=== PATIENT | female | born 1955 | race Caucasian/White ===

== ENCOUNTER 2017-05-11 19:20 | Emergency (ER) | payer OTHER ==
[2012-01-07 10:05] VITALS: BMI 29.1
[2017-05-11 19:49] LABS: APPEARANCE CLEAR (CLEAR); BILIRUBIN NEGATIVE (NEGATIVE); COLOR YELLOW (YELLOW); GLUCOSE NEGATIVE (NEGATIVE); KETONE NEGATIVE (NEGATIVE); NITRITE NEGATIVE (NEGATIVE); PROTEIN NEGATIVE (NEGATIVE); SPECIFIC GRAVITY 1.015 (1.005-1.020); UROBILINOGEN NORMAL (NORMAL)
[2017-05-11 19:50] LABS: BACTERIA FEW /hpf (NONE SEEN)
[2017-05-11 20:06] LABS: BASOPHILS 0.3 % (0-2); EOSINOPHILS 1.8 % (0-7); HEMATOCRIT 40.3 % (36.0-48.0); HEMOGLOBIN 13.2 g/dL (12-16); IMMATURE GRANULOCYTES 0.3 % (0-5); LYMPHOCYTES 12.9 % (15-50); MCH 29.9 pg (26.0-34.0); MCHC 32.8 g/dL (31.0-37.0); MCV 91.4 fL (80.0-100.0); MEAN PLATELET VOLUME 11.4 fL (7.4-10.4); MONOCYTES 5.4 % (2-11); NEUTROPHILS 79.3 % (40-80); PLATELET COUNT 223 10x3/uL (130-400); RBC 4.41 10x6/uL (4.00-5.40); RDW 12.9 % (11.5-14.5); WBC 10.9 10x3/uL (4.8-10.8)
[2017-05-11 20:29] LABS: ALBUMIN 3.9 g/dL (3.4-5.0); ANION GAP 13.4 mmol/L (8-16); BILIRUBIN - TOTAL 0.27 mg/dL (0.2-1.3); CALCIUM 9.3 mg/dL (8.5-10.1); CREATININE - SERUM 1.2 mg/dL (0.6-1.3); POTASSIUM - SERUM 3.4 mmol/L (3.5-5.1); PROTEIN - SERUM 7.2 g/dL (6.4-8.2)
== END 2017-05-11 21:18 | disposition home or self-care (01) ==
LOC: D.ER 19:20
PROVIDERS: Family Medicine
DX: N20.1 Calculus of ureter (principal)

== ENCOUNTER 2018-02-08 07:14 | Emergency (ER) | payer OTHER ==
[~2018-02-08] VITALS: Ht 167.6 cm; Wt 75.0 kg
[2018-02-08 07:17] VITALS: Ht 167.6 cm; Wt 75.0 kg
[2018-02-08] MEDS ORDERED: FENOFIBRATE160 MG PO (07:18)
[2018-02-08] MEDS ORDERED: OMEPRAZOLE40 MG PO (07:18)
[2018-02-08] MEDS ORDERED: ZOCOR20 MG PO (07:19)
[2018-02-08] MEDS ORDERED: EFFEXOR100 MG PO (07:19)
[2018-02-08] MEDS ORDERED: TOPAMAX15 MG PO (07:19)
[2018-02-08] MEDS ORDERED: MERIBIN5 MG PO (07:20)
[2018-02-08] MEDS ORDERED: NEURONTIN 300300 MG PO (07:20)
[2018-02-08] MEDS ORDERED: COLACE100 MG PO (07:20)
[2018-02-08 08:00] LABS: BASOPHILS 0.4 % (0-2); EOSINOPHILS 2.1 % (0-7); HEMATOCRIT 39.2 % (36.0-48.0); HEMOGLOBIN 13.1 g/dL (12-16); IMMATURE GRANULOCYTES 0.3 % (0-5); LYMPHOCYTES 12.1 % (15-50); MCH 29.5 pg (26.0-34.0); MCHC 33.4 g/dL (31.0-37.0); MCV 88.3 fL (80.0-100.0); MEAN PLATELET VOLUME 10.9 fL (7.4-10.4); MONOCYTES 6.5 % (2-11); NEUTROPHILS 78.6 % (40-80); PLATELET COUNT 237 10x3/uL (130-400); RBC 4.44 10x6/uL (4.00-5.40); RDW 12.6 % (11.5-14.5); WBC 10.4 10x3/uL (4.8-10.8)
[2018-02-08 08:13] LABS: APPEARANCE HAZY (CLEAR); BILIRUBIN NEGATIVE (NEGATIVE); COLOR YELLOW (YELLOW); GLUCOSE NEGATIVE (NEGATIVE); KETONE NEGATIVE (NEGATIVE); NITRITE NEGATIVE (NEGATIVE); PROTEIN NEGATIVE (NEGATIVE); UROBILINOGEN NORMAL (NORMAL)
[2018-02-08 08:15] LABS: WHITE CELLS - URINE 0-5 /hpf (0-5)
[2018-02-08 08:16] LABS: BACTERIA FEW /hpf (NONE SEEN); EPITHELIAL CELLS 0-5 /hpf (0-5)
[2018-02-08 08:17] LABS: ALBUMIN 3.6 g/dL (3.4-5.0); ANION GAP 17.1 mmol/L (8-16); BILIRUBIN - TOTAL 0.16 mg/dL (0.2-1.3); CALCIUM 9.7 mg/dL (8.5-10.1); CARBON DIOXIDE 21.8 mmol/L (21.0-32.0); CREATININE - SERUM 1.5 mg/dL (0.6-1.3); POTASSIUM - SERUM 3.9 mmol/L (3.5-5.1)
[2018-02-08] MEDS ORDERED: ZOFRAN ODT4 MG/UDTAB PO (09:30)
[2018-02-08] MEDS ORDERED: DILAUDID4 MG PO (09:30)
[2018-02-08 10:36] VITALS: BP 134/82
== END 2018-02-08 10:37 | disposition home or self-care (01) ==
LOC: D.ER 07:14
PROVIDERS: Emergency Medicine
DX: N23 Unspecified renal colic (principal); K21.9 Gastro-esophageal reflux disease without esophagitis

== ENCOUNTER 2018-12-13 16:33 | Inpatient (IN) | payer OTHER ==
[~2018-12-13] VITALS: Ht 167.6 cm; Wt 81.8 kg
[~2018-12-13 16:33] MED LIST: COLACE100 MG PO; DILAUDID4 MG PO; EFFEXOR100 MG PO; FENOFIBRATE160 MG PO; MERIBIN5 MG PO; NEURONTIN 300300 MG PO; OMEPRAZOLE40 MG PO; TOPAMAX15 MG PO; ZOCOR20 MG PO; ZOFRAN ODT4 MG/UDTAB PO
--- NOTE | 2018-12-13 16:35 | NUR ---
upon presentation to ED this nurse noted slurred speech and left sided facial drooping - Dr. Fleming notified and came to bedside at that time. Pt taken to CT immediately and [facility] notified.
[2018-12-13 17:14] LABS: BASOPHILS 0.3 % (0-2); EOSINOPHILS 4.6 % (0-7); HEMATOCRIT 41.2 % (36.0-48.0); HEMOGLOBIN 13.7 g/dL (12-16); IMMATURE GRANULOCYTES 0.2 % (0-5); LYMPHOCYTES 32.6 % (15-50); MCH 28.4 pg (26.0-34.0); MCHC 33.3 g/dL (31.0-37.0); MCV 85.5 fL (80.0-100.0); MEAN PLATELET VOLUME 10.7 fL (7.4-10.4); MONOCYTES 5.2 % (2-11); NEUTROPHILS 57.1 % (40-80); PLATELET COUNT 196 10x3/uL (130-400); RBC 4.82 10x6/uL (4.00-5.40); RDW 13.1 % (11.5-14.5); WBC 6.6 10x3/uL (4.8-10.8)
[2018-12-13 17:30] LABS: APTT 27.5 SECONDS (22.8-39.4); INR 1.14 (0.85-1.17); PROTIME 14.1 SECONDS (11.6-15.0)
--- NOTE | 2018-12-13 17:33 | NUR ---
NIH Score 0 -time of contact with [facility] 1641 - to CT at 1634
[2018-12-13 17:36] LABS: ALBUMIN 3.6 g/dL (3.4-5.0); ALKALINE PHOSPHATASE 120 U/L (46-116); ALT (SGPT) 14 U/L (10-68); BILIRUBIN - TOTAL 0.17 mg/dL (0.2-1.3); CALC OSMOLALITY 293 mosm/kg (275-300); CALCIUM 9.2 mg/dL (8.5-10.1); CARBON DIOXIDE 22.3 mmol/L (21.0-32.0); CHLORIDE - SERUM 109 mmol/L (98-107); GLUCOSE 126 mg/dL (74-106); POTASSIUM - SERUM 3.5 mmol/L (3.5-5.1); PROTEIN - SERUM 7.2 g/dL (6.4-8.2); SODIUM 145 mmol/L (136-145); UREA NITROGEN 20 mg/dL (7-18); eGFR NON AFRICAN AMERICAN 59 mL/min (90-120)
--- NOTE | 2018-12-13 17:37 | NUR ---
upon presentation to ED EMS reported that patient had weakness with a "gentle slide down fall to the concrete" -
[2018-12-13 17:48] LABS: CKMB 0.8 U/L (0.0-3.6); CREATINE KINASE 107 UL (21-215)
[2018-12-13 17:49] LABS: TROPONIN-I < 0.017 ng/mL (0.000-0.060)
--- NOTE | 2018-12-13 18:15 | NUR ---
right knee abrasion cleaned with wound cleanser - large band aid placed on knee.
[2018-12-13 18:36] VITALS: BP 168/90
[2018-12-13 18:46] VITALS: BP 168/93
--- NOTE | 2018-12-13 18:49 | NUR ---
this nurse returned with patient from CTA - VSS - PT AAOX4 - No acute symptoms noted at this time.
--- NOTE | 2018-12-13 18:50 | NUR ---
During time in ED patient has had 3 intermittant episodes of slurred speech that self resolve in < 5 minutes - pt denies pain, nausea, and discomfort. lights turned low and low stimulation environment set with lights low and patient closing eyes to rest. family at bedside
--- NOTE | 2018-12-13 18:57 | NUR ---
pt aaox4 - pupils bilaterally 3mm reactive and brisk - SMCs intact - pt denies pain - bilateral upper extremities equal in strength - bilateral lower extremities equal in strength. Negative for nausea and vomiting.
[2018-12-13 19:11] LABS: APPEARANCE CLEAR (CLEAR); BILIRUBIN NEGATIVE (NEGATIVE); COLOR YELLOW (YELLOW); GLUCOSE NEGATIVE (NEGATIVE); KETONE NEGATIVE (NEGATIVE); NITRITE NEGATIVE (NEGATIVE); PROTEIN NEGATIVE (NEGATIVE); UROBILINOGEN NORMAL (NORMAL)
[2018-12-13 19:13] LABS: BACTERIA MODERATE /hpf (NONE SEEN); EPITHELIAL CELLS 0-5 /hpf (0-5); RED CELLS - URINE OCC /hpf (0-5); WHITE CELLS - URINE 0-5 /hpf (0-5)
[2018-12-13 20:00] VITALS: BP 186/97
--- NOTE | 2018-12-13 20:15 | NUR ---
PT ARRIVED TO FLOOR ALERT AND ORIENTED X4, WITHOUT DISTRESS. TRANSFERED SELF FROM STRETCHER TO BED. WITHOUT WEAKNESS. ABLE TO AMBULATE TO BR W/ ASSIST. BILAT FERN GATHERER STRENGTH EQUAL. PERIPHERAL PULSES STRONG. PERRL. FOLLOWS ALL COMMANDS. TONGUE MIDLINE. LUNGS CTA, BOWEL SOUNDS ACTIVE. DENIES PAIN OR NEEDS AT THIS TIME. FAMILY AT BEDSIDE, CL IN REACH. WILL CTM
[2018-12-13 20:39] LABS: CHOL - HDL RATIO 6.4 ratio (2.3-4.1); LDL-HDL RATIO 4.3 ratio (1.5-3.5)
[2018-12-14] VITALS: BP 167/97
[2018-12-14 01:12] VITALS: Ht 167.6 cm; Wt 81.8 kg
--- NOTE | 2018-12-14 02:53 | NUR ---
DRESSING TO RIGHT KNEE CLEANED AND CHANGED.
--- NOTE | 2018-12-14 03:20 | NUR ---
ATTEMPTED TO OBTAIN TELEMETRY PER ORDER. ADDED TO WAITING LIST.
[2018-12-14 04:00] VITALS: BP 150/97
[2018-12-14 06:35] LABS: BASOPHILS 0.6 % (0-2); HEMATOCRIT 38.1 % (36.0-48.0); HEMOGLOBIN 12.6 g/dL (12-16); IMMATURE GRANULOCYTES 0.2 % (0-5); MCH 28.1 pg (26.0-34.0); MCHC 33.1 g/dL (31.0-37.0); MCV 84.9 fL (80.0-100.0); MONOCYTES 5.9 % (2-11); NEUTROPHILS 46.3 % (40-80); PLATELET COUNT 197 10x3/uL (130-400); RBC 4.49 10x6/uL (4.00-5.40); RDW 13.1 % (11.5-14.5); WBC 6.3 10x3/uL (4.8-10.8)
--- NOTE | 2018-12-14 07:09 | NUR ---
ALERT AND ORIENTED. LUNGS CLEAR BILATERALLY IN ALL PORTER. HEART SOUNDS S1 AND S2 HEARD IN ALL PORTER. BOWEL SOUNDS ACTIVE X 4. NO WEAKNESS NOTED TO BLE OR BUE. PERRLA. IV PATENT TO LEFT AC AND LEFT HAND. DENIES PAIN. DENIES NEEDS. BED LOW. CALL MUJICA AND PERSONAL ITEMS IN REACH. AT BS. WILL CONTINUE TO MONITOR.
[2018-12-14 07:23] LABS: ALBUMIN 3.1 g/dL (3.4-5.0); ALKALINE PHOSPHATASE 102 U/L (46-116); ALT (SGPT) 14 U/L (10-68); BILIRUBIN - TOTAL 0.29 mg/dL (0.2-1.3); CALCIUM 8.4 mg/dL (8.5-10.1); CARBON DIOXIDE 23.5 mmol/L (21.0-32.0); CHLORIDE - SERUM 111 mmol/L (98-107); CKMB 0.6 U/L (0.0-3.6); CREATINE KINASE 76 UL (21-215); GLUCOSE 94 mg/dL (74-106); POTASSIUM - SERUM 3.3 mmol/L (3.5-5.1); PROTEIN - SERUM 6.3 g/dL (6.4-8.2); SODIUM 144 mmol/L (136-145)
[2018-12-14 07:25] LABS: CALC OSMOLALITY 286 mosm/kg (275-300); CREATININE - SERUM 0.7 mg/dL (0.6-1.3); TROPONIN-I < 0.017 ng/mL (0.000-0.060); UREA NITROGEN 13 mg/dL (7-18); eGFR NON AFRICAN AMERICAN 90 mL/min (90-120)
[2018-12-14 08:34] VITALS: BP 167/95
--- NOTE | 2018-12-14 09:54 | NUR ---
CALLED TELE TO SEE IF TELE MONITOR AVAILABLE FOR PATIENT. STATES NONE AVAILABLE.
--- NOTE | 2018-12-14 11:45 | NUR ---
SPOKE WITH RAMO KHAN ABOUT PATIENT REQUEST TO RESTART HOME MEDICATIONS. STATES WILL LOOK AT MED REC.
--- NOTE | 2018-12-14 13:35 | NUR ---
PATIENT TAKEN FOR MRI.
[2018-12-14 13:48] VITALS: BP 160/90
--- NOTE | 2018-12-14 14:30 | EC ---
PATIENT:SUKHJINDER BRADFORD DATE OF SERVICE: 12/13/18 SEX: F MEDICAL RECORD: [id number] DATE OF : [birth year] LOCATION:[facility] AGE OF PATIENT: 62 ADMISSION DATE: 12/13/18 REFERRING PHYSICIAN: INTERPRETING PHYSICIAN: PETROS HERMAN MD ECHOCARDIOGRAM REPORT ECHO CHARGES 4 ECHO COMPLETE Date: 12/14/18 CLINICAL DIAGNOSIS: TIA ECHOCARDIOGRAPHIC MEASUREMENTS (adult normal given) AC root (d.<3.7cm) 2.3 cm LV Septum d (<1.2 cm> 1.1 cm Valve Excursion 1.6 cm LV Septum (systole) 1.4 cm Left Atria (s.<4.0cm> 3.2 cm LVPW d(<1.2cm) 1.0 cm RV (d.<2.3cm) 2.6 cm LVPW (sytole) 1.2 cm LV diastole(<5.6CM) 4.6 cm MV E-F(>70mm/sec) cm LV systole 3.4 cm LVOT Diameter 1.6 cm MV exc.(>10mm) cm Est.ejection fraction (50-75%) % DOPPLER: LVIT cm/sec A 87 cm/sec E 60 cm/sec LA cm/sec RVSP 16.5 mmHg LVOT 95 cm/sec AOP1/2T m/s Asc. Ao 143 cm/sec RVOT 83 cm/sec RA cm/sec PA 78 cm/sec AV Gradient Peak 8.2 mmHg AV Mean 4.8 mmHg AV Area 1.3 cm MV Gradient Peak 3.7 mmHg MV Mean 1.9 mmHg MV Area cm COMMENTS: Casino Accountant: Iwona CASAS Telescope Operator: 3 Dr. Mota TAPE# PACS Pericardial Effusion N DATE OF SERVICE: Adequate 2D, color flow, spectral Doppler, and M-Mode. No LVH. LV internal dimension is normal. Wall motion is normal. EF is greater than or equal to 55%. Aortic valve is tricuspid. No evidence of stenosis by Doppler interrogation. Left atrium is normal. Mitral valve shows no prolapse. Trace MR. Right-sided chambers grossly normal. Trace TR. TRANSINT:[id number] Voice Confirmation ID: [id number] DOCUMENT ID: [id number] ECHOCARDIOGRAM REPORT [id number] SUKHJINDER BRADFORD PETROS HERMAN MD at 1430 CC: [id number] DICTATION DATE: 12/14/18 1101 EXCHANGE MECHANIC: 12/14/18 1125 ADM IN [facility] [address] [id number]
--- NOTE | 2018-12-14 16:54 | NUR ---
RESTING IN BED. DENIES PAIN. DENIES NEEDS. WILL CONTINUE TO MONITOR.
[2018-12-14 17:18] VITALS: BP 153/85
--- NOTE | 2018-12-14 18:07 | NUR ---
ASSISTED TO BATHROOM. DENIES FURTHER NEEDS. DENIES PAIN. BED LOW. CALL MUJICA AND PERSONAL ITEMS IN REACH. WILL CONTINUE TO MONITOR.
[2018-12-14 21:15] VITALS: BP 170/91
[2018-12-15 01:53] VITALS: BP 164/80
[2018-12-15 05:36] VITALS: BP 165/87
--- NOTE | 2018-12-15 05:53 | NUR ---
I have reviewed this patient and I concur with the Shift Assessment completed by the Licensed Practical Nurse today this shift.
--- NOTE | 2018-12-15 07:33 | NUR ---
ALERT AND ORIENTED. LUNGS CLEAR BILATERALLY IN ALL PORTER. HEART SOUNDS S1 AND S2 HEARD IN ALL PORTER. BOWEL SOUNDS ACTIVE X 4. SKIN INTACT WITHOUT REDNESS. NO WEAKNESS NOTED. PERRLA. IV TO LEFT HAND PATENT WITHOUT REDNESS. DENIES PAIN. DENIES NEEDS. BED LOW. CALL MUJICA AND PERSONAL ITEMS IN REACH. AT BEDSIDE. WILL CONTINUE TO MONITOR.
[2018-12-15 08:59] VITALS: BP 167/88
--- NOTE | 2018-12-15 10:41 | NUR ---
RESTING IN BED. DENIES PAIN. DENIES NEEDS. WILL CONTINUE TO MONITOR.
--- NOTE | 2018-12-15 12:31 | NUR ---
RESTING IN BED. DENIES PAIN. DENIES NEEDS. AT BEDSIDE. WILL CONTINUE TO MONITOR.
[2018-12-15] MEDS ORDERED: PRAVACHOL20 MG PO (12:45)
[2018-12-15] MEDS ORDERED: LISINOPRIL5 MG PO (12:45)
[2018-12-15] MEDS ORDERED: BAYER CHEWABLE81 MG PO ×2 (12:46→15:03)
--- NOTE | 2018-12-15 13:31 | MORECARE ---
CASE MANAGEMENT DISCHARGE SUMMARY PATIENT: SUKHJINDER BRADFORD UNIT: [id number] ADM DATE: 12/13/18 AGE: 62 : [birth year] SEX: F ROOM/BED: D.2235 AUTHOR: CINDY KIRK PHYSICIAN: REFERRING PHYSICIAN: SAVANNAH ROSALES MD DATE OF SERVICE: 12/15/18 Discharge Plan Patient Name: SUKHJINDER BRADFORD Facility: [facility]:[place] : 1955 Planned Disposition: Home Anticipated Discharge Date: 12/15/18 Discharge Date: Expected LOS: 2 Initial Reviewer: [email or web address] Initial Review Date: 12/13/2018 Generated: 12/15/18 2:31 pm Comments DCP- Discharge Planning Updated by [email or web address]: Kika Martínez on 12/15/18 12:[address] Patient Name: SUKHJINDER BRADFORD Admission Status: ER Accout number: [id number] Admission Date: 12-13-2018 : 1955 Admission Diagnosis: Attending: SAVANNAH ROSALES Current LOS: 2 Anticipated DC Date: 12-15-2018 Planned Disposition: Home Primary Insurance: [employer] Discharge Planning Comments: PATIENT WAS RESTING WITH EYES CLOSED, I MET WITH HER ABOUT DC PLANNING. STATES PLANS TO DC TO HOME AND DOESN'T NEED HH OR REHAB OR EQUIPMENT. CM WILL FOLLOW AND ASSIST WITH DC PLANNING. Oil Rigger: Kika Martínez DCPIA - Discharge Planning Initial Assessment Updated by [id number]: Kika Martínez on 12/15/18 1:27 pm * Is the patient Alert and Oriented? Yes * PCP SAL * Pharmacy [facility] * Preadmission Environment Home with Family * ADLs Independent * List name and contact numbers for known caregivers / representatives who currently or will assist patient after discharge: SHAGGY, , * Additional services required to return to the preadmission environment? No * Can the patient safely return to the preadmission environment? Yes * Has this patient been hospitalized within the prior 30 days at any hospital? No Patient Name: SUKHJINDER BRADFORD Page [id number] at 1331 All edits/amendments must be made on the electronic document DICTATION DATE: 12/15/181330 BOX COVERING MACHINE OPERATOR: MARK 12/15/181330 RPT#: [id number] DC DATE: STATUS: ADM IN [facility] [address] [place] [address] END OF REPORT
[2018-12-15 14:23] VITALS: BP 175/88
--- NOTE | 2018-12-15 15:34 | NUR ---
RESTING IN BED. DENIES PAIN. DENIES NEEDS. WILL CONTINUE TO MONITOR.
--- NOTE | 2018-12-15 15:49 | NUR ---
DISCHARGE EDUCATION PROVIDED BOTH WRITTEN AND VERBAL. VERBALIZED UNDERSTANDING. DENIES FURTHER QUESTIONS. IV REMOVED FROM RIGHT HAND WITH TIP INTACT. PATIENT DISCHARGED HOME WITH WITH ALL BELONGINGS.
--- NOTE | 2018-12-15 16:48 | MORECARE ---
CASE MANAGEMENT DISCHARGE SUMMARY PATIENT: SUKHJINDER BRADFORD UNIT: [id number] ADM DATE: 12/13/18 AGE: 62 : 54 SEX: F ROOM/BED: D.2235 AUTHOR: REAGANDOC PHYSICIAN: REFERRING PHYSICIAN: SAVANNAH ROSALES MD DATE OF SERVICE: 12/15/18 Discharge Plan Patient Name: SUKHJINDER BRADFORD Facility: [facility]:[place] : 1955 Planned Disposition: Home Anticipated Discharge Date: 12/15/18 Discharge Date: 12/15/2018 Expected LOS: 2 Initial Reviewer: [email or web address] Initial Review Date: 12/13/2018 Generated: 12/15/18 5:47 pm Comments DCP- Discharge Planning Updated by [email or web address]: Kika Martínez on 12/15/18 12:[address] Patient Name: SUKHJINDER BRADFORD Admission Status: ER Accout number: [id number] Admission Date: 12-13-2018 : 1955 Admission Diagnosis: Attending: SAVANNAH ROSALES Current LOS: 2 Anticipated DC Date: 12-15-2018 Planned Disposition: Home Primary Insurance: [facility] Discharge Planning Comments: PATIENT WAS RESTING WITH EYES CLOSED, I MET WITH HER ABOUT DC PLANNING. STATES PLANS TO DC TO HOME AND DOESN'T NEED HH OR REHAB OR EQUIPMENT. CM WILL FOLLOW AND ASSIST WITH DC PLANNING. Probation And Patrol Agent: Kika Martínez DCPIA - Discharge Planning Initial Assessment Updated by [id number]: Kika Martínez on 12/15/18 1:27 pm * Is the patient Alert and Oriented? Yes * PCP SAL * Pharmacy [facility] * Preadmission Environment Home with Family * ADLs Independent * List name and contact numbers for known caregivers / representatives who currently or will assist patient after discharge: SHAGGY, , * Additional services required to return to the preadmission environment? No * Can the patient safely return to the preadmission environment? Yes * Has this patient been hospitalized within the prior 30 days at any hospital? No Last DP export: 12/15/18 12:31 p Patient Name: SUKHJINDER BRADFORD Page [phone] at 1648 All edits/amendments must be made on the electronic document DICTATION DATE: 12/15/181646 PARTS ROOM CLERK: MARK 12/15/181646 RPT#: [id number] DC DATE:12/15/18 STATUS: DIS IN [facility] [address] [place] [address] END OF REPORT
== END 2018-12-15 15:54 | disposition home or self-care (01) | DRG 69 ==
LOC: D.ER 16:33 → D.MS 19:37
PROVIDERS: Family Medicine; ADMIT Internal Medicine Nephrology; ATTEND Internal Medicine Nephrology
DX: G45.8 Other transient cerebral ischemic attacks and related syndromes (principal); G40.89 Other seizures; E78.5 Hyperlipidemia, unspecified; I10 Essential (primary) hypertension

== ENCOUNTER 2020-07-31 05:42 | Day surgery (SDC) | payer MEDICARE, OTHER ==
[~2020-07-31 05:42] MED LIST changes: +BAYER CHEWABLE81 MG PO; +LISINOPRIL5 MG PO; +PRAVACHOL20 MG PO
[2020-07-31 06:20] LABS: BASOPHILS 0.7 % (0-2); EOSINOPHILS 4.3 % (0-7); HEMATOCRIT 44.4 % (36.0-48.0); HEMOGLOBIN 14.4 g/dL (12-16); IMMATURE GRANULOCYTES 0.2 % (0-5); LYMPHOCYTE ABS# 1.97 10x3/uL (1.18-3.74); LYMPHOCYTES 32.8 % (15-50); MCH 28.6 pg (26.0-34.0); MCHC 32.4 g/dL (31.0-37.0); MCV 88.1 fL (80.0-100.0); MEAN PLATELET VOLUME 11.3 fL (7.4-10.4); MONOCYTES 7.5 % (2-11); NEUTROPHIL ABS# 3.27 10x3/uL (1.56-6.13); NEUTROPHILS 54.5 % (40-80); PLATELET COUNT 257 10x3/uL (130-400); RBC 5.04 10x6/uL (4.00-5.40); RDW 13.6 % (11.5-14.5)
[2020-07-31 06:33] LABS: ANION GAP 15.5 mmol/L (8-16); CALCIUM 9.3 mg/dL (8.5-10.1); CARBON DIOXIDE 21.7 mmol/L (21.0-32.0); CREATININE - SERUM 0.9 mg/dL (0.6-1.3); POTASSIUM - SERUM 3.2 mmol/L (3.5-5.1)
== END 2020-07-31 09:54 | disposition home or self-care (01) ==
LOC: D.OPS 05:42
PROVIDERS: Anesthesiology
DX: K52.89 Other specified noninfective gastroenteritis and colitis (principal); K63.89 Other specified diseases of intestine; R14.0 Abdominal distension (gaseous); K82.8 Other specified diseases of gallbladder; E78.5 Hyperlipidemia, unspecified; I10 Essential (primary) hypertension; K56.609 Unspecified intestinal obstruction, unspecified as to partial versus complete obstruction; G43.909 Migraine, unspecified, not intractable, without status migrainosus

== ENCOUNTER 2020-09-18 08:55 | Inpatient (IN) | payer MEDICARE, OTHER ==
[~2020-09-18] VITALS: Ht 167.6 cm; Wt 78.0 kg
[2020-09-22] MEDS ORDERED: ZOCOR40 MG PO (14:54)
[2020-09-22] MEDS ORDERED: PROCARDIA XL60 MG PO (14:55)
[2020-09-22] MEDS ORDERED: PAMELOR 25 MG C25 MG (14:56)
[2020-09-22] MEDS ORDERED: REXULTI1 MG PO (14:56)
[2020-09-22 16:07] LABS: EOSINOPHILS 3.9 % (0-7); HEMATOCRIT 42.9 % (36.0-48.0); HEMOGLOBIN 13.8 g/dL (12-16); LYMPHOCYTES 36.9 % (15-50); MCH 27.9 pg (26.0-34.0); MCHC 32.2 g/dL (31.0-37.0); MCV 86.5 fL (80.0-100.0); MEAN PLATELET VOLUME 8.7 fL (7.4-10.4); MONOCYTES 5.1 % (2-11); NEUTROPHILS 53.1 % (40-80); PLATELET COUNT 283 10x3/uL (130-400); RBC 4.96 10x6/uL (4.00-5.40); RDW 13.7 % (11.5-14.5); WBC 8.3 10x3/uL (4.8-10.8)
[2020-09-22 16:16] LABS: CALC OSMOLALITY 280 mosm/kg (275-300); CALCIUM 8.7 mg/dL (8.5-10.1); CARBON DIOXIDE 21.9 mmol/L (21.0-32.0); CHLORIDE - SERUM 107 mmol/L (98-107); CREATININE - SERUM 0.8 mg/dL (0.6-1.3); GLUCOSE 91 mg/dL (74-106); POTASSIUM - SERUM 3.1 mmol/L (3.5-5.1); SODIUM 141 mmol/L (136-145); UREA NITROGEN 13 mg/dL (7-18); eGFR NON AFRICAN AMERICAN 76 mL/min (90-120)
[2020-09-27] VITALS (11 sets, daily range): BP systolic 99–132; BP diastolic 55–80; BMI 27.8
--- NOTE | 2020-09-27 12:10 | NUR ---
1204 - DR MURO CONSULTED FOR PT VERY SLOW TO AROUSE, SPO2 OK, WILL CTM, CONSULT DR BERMUDEZ FOR APPROPRIATNESS OF D/C TO MED/SURG
--- NOTE | 2020-09-27 12:56 | NUR ---
RECIEVED PER BED FROM PACU. AWAKENS AND DRIFTS BACK TO SLEEP. NG NOTED TO RIGHT NARE TO LIS-NO DRAINAGE NOTED AT P RESENT. SCDS ON BILAT. SIM PRESENT AND DRAINING LATISHA URINE. STAT LOCK IN PLACE. IV TO RIGHT HAND WITH NO REDDNESS OR SWELLING NOTED. MICA DRAIN X 1 NOTED WITH BLOODY DRAINAGE NOTED. ABD BINDER IN PLACE. DRESSING CLEAN DRY AND INTACT. CALL LIGHT IN REACH. SPOUSE AT BEDSIDE
--- NOTE | 2020-09-27 20:05 | NUR ---
1999 PT C/O NGT IN BACK OF HER MOUTH UPON LOOKING FOUND NGT COILED UP LIKE A SNAKE AT THE BACK OF HER MOUTH NOTIFIED SURGEON PIANO REGULATOR INSPECTOR, DR FARNSWORTH AND GAVE HIM A DISCRIPTION OF THE FINDINGS PATIENT COULDNT STAND THE PRESSURE NGT WAS REMOVED AND DR FARNSWORTH SAID TO LEAVE NGT OUT
[2020-09-28 04:00] VITALS: BP 122/71
[2020-09-28 06:02] LABS: BASOPHILS 0.3 % (0-2); EOSINOPHILS 0.2 % (0-7); HEMATOCRIT 33.9 % (36.0-48.0); HEMOGLOBIN 11.4 g/dL (12-16); LYMPHOCYTES 18.7 % (15-50); MCH 28.8 pg (26.0-34.0); MCHC 33.6 g/dL (31.0-37.0); MCV 85.9 fL (80.0-100.0); MEAN PLATELET VOLUME 9.4 fL (7.4-10.4); MONOCYTES 8.1 % (2-11); NEUTROPHILS 72.7 % (40-80); RBC 3.95 10x6/uL (4.00-5.40); RDW 13.6 % (11.5-14.5); WBC 7.2 10x3/uL (4.8-10.8)
[2020-09-28 06:16] LABS: PLATELET COUNT 180 10x3/uL (130-400)
[2020-09-28 06:18] LABS: ALBUMIN 2.7 g/dL (3.4-5.0); ALKALINE PHOSPHATASE 88 U/L (30-120); ALT (SGPT) 16 U/L (10-68); BILIRUBIN - TOTAL 0.47 mg/dL (0.2-1.3); CALC OSMOLALITY 284 mosm/kg (275-300); CALCIUM 8.1 mg/dL (8.5-10.1); CARBON DIOXIDE 24.4 mmol/L (21.0-32.0); CHLORIDE - SERUM 110 mmol/L (98-107); CREATININE - SERUM 0.8 mg/dL (0.6-1.3); GLUCOSE 120 mg/dL (74-106); POTASSIUM - SERUM 4.1 mmol/L (3.5-5.1); PROTEIN - SERUM 5.9 g/dL (6.4-8.2); SODIUM 142 mmol/L (136-145); UREA NITROGEN 14 mg/dL (7-18); eGFR NON AFRICAN AMERICAN 76 mL/min (90-120)
[2020-09-28 08:46] VITALS: BP 124/59
[2020-09-28 13:10] VITALS: BP 127/85
[2020-09-28 13:59] VITALS: Ht 167.6 cm; Wt 78.0 kg
[2020-09-28 17:55] VITALS: BP 152/78
[2020-09-28 20:00] VITALS: BP 146/69
[2020-09-29] VITALS: BP 139/72
[2020-09-29 04:00] VITALS: BP 138/74
[2020-09-29 09:14] VITALS: BP 138/74
[2020-09-29 13:24] VITALS: BP 155/74
[2020-09-29 18:05] VITALS: BP 144/71
--- NOTE | 2020-09-30 04:34 | NUR ---
PT RADIO FREQUENCY DESIGN ENGINEER LIGHT. HELP PT TO BATHROOM AND BACK TO BED. PT EXPRESS NO NEED FOR PAIN MED AT THE MOMENT PAIN IS TOLERABLE AT THE MOMENT. WILL CONT TO MONITOR.
[2020-09-30 06:44] LABS: BASOPHILS 0.3 % (0-2); EOSINOPHILS 2.9 % (0-7); HEMATOCRIT 31.5 % (36.0-48.0); HEMOGLOBIN 10.7 g/dL (12-16); LYMPHOCYTES 17.4 % (15-50); MCH 28.9 pg (26.0-34.0); MCHC 33.9 g/dL (31.0-37.0); MCV 85.4 fL (80.0-100.0); MONOCYTES 6.5 % (2-11); NEUTROPHILS 72.9 % (40-80); PLATELET COUNT 173 10x3/uL (130-400); RBC 3.69 10x6/uL (4.00-5.40); RDW 13.2 % (11.5-14.5); WBC 5.3 10x3/uL (4.8-10.8)
[2020-09-30 07:10] LABS: ALBUMIN 2.7 g/dL (3.4-5.0); ALKALINE PHOSPHATASE 83 U/L (30-120); ALT (SGPT) 18 U/L (10-68); BILIRUBIN - TOTAL 0.43 mg/dL (0.2-1.3); CALC OSMOLALITY 280 mosm/kg (275-300); CALCIUM 8.2 mg/dL (8.5-10.1); CARBON DIOXIDE 23.5 mmol/L (21.0-32.0); CHLORIDE - SERUM 108 mmol/L (98-107); CREATININE - SERUM 0.6 mg/dL (0.6-1.3); GLUCOSE 104 mg/dL (74-106); POTASSIUM - SERUM 3.4 mmol/L (3.5-5.1); PROTEIN - SERUM 5.7 g/dL (6.4-8.2); SODIUM 142 mmol/L (136-145); UREA NITROGEN 8 mg/dL (7-18); eGFR NON AFRICAN AMERICAN > 90 mL/min (90-120)
[2020-09-30 11:59] VITALS: BP 157/82
[2020-09-30 17:46] VITALS: BP 143/74
[2020-09-30 22:16] VITALS: BP 149/82
--- NOTE | 2020-09-30 23:09 | NUR ---
PATIENT RECIEVED FULL CHG BED BATH. ABD DRESSING CHANGED. SMALL AMOUNT OF DRIED BLOOD ON OLD DRESSING. DRESSED WITH GAUZE AND TEGADERM. WHIT IN PLACE. ABD BINDER REPLACED. MEDICATED WITH ZOFRAN FOR NAUSEA.
[2020-10-01 00:08] VITALS: BP 162/80
[2020-10-01 04:37] VITALS: BP 157/77
[2020-10-01 09:11] VITALS: BP 165/83
[2020-10-01 12:51] VITALS: BP 171/87
[2020-10-01 16:32] VITALS: BP 172/86
[2020-10-01 22:06] VITALS: BP 146/73
--- NOTE | 2020-10-02 07:00 | NUR ---
MORNING ROUNDS- AAOX4 UPON ENTERING. NO IV ACCESS, OKAY PER DOCTORS. DENIES ANY NEEDS AT THIS TIME. BED IN LOWEST POSITION, BED RAILS X2, CALL LIGHT WITHIN REACH. WILL CONTINUE POC.
--- NOTE | 2020-10-02 09:14 | NUR ---
AAOX4 UPON ENTERING. GAVE MORNING MEDICATION, NO DIFFICULTIES. UPRIGHT IN BED, VISITOR AT BEDSIDE. DENIES ANY NEEDS. WILL CONTINUE POC.
[2020-10-02] MEDS ORDERED: TYLENOL W/CODEI1 TAB PO (09:50)
[2020-10-02] MEDS ORDERED: LEVOFLOXACIN500 MG PO (09:50)
--- NOTE | 2020-10-02 10:43 | NUR ---
REMOVED MIDLINE MICA DRAIN, COVERD WITH GAUZE AND PRESSURE DRESSING. TOELRATED WELL. SIGNED ALL NECESSARY DISCHARGE PAPEREWORK AT THIS TIME. IS GETTING DRESSED ON OWN, DENIES FURTHER NEEDS FROM STAFF/HOSPITAL. WILL CALL TRANSPORT FOR ESCORT OUT.
== END 2020-10-02 11:00 | disposition home or self-care (01) | DRG 330 ==
LOC: D.MS 09-27 06:00 → D.SDCHOLD 09-27 06:00 → D.MS 09-27 11:32
PROVIDERS: Anesthesiology; ADMIT Surgery; ATTEND Surgery
PROC: 0DTG0ZZ Resection of Left Large Intestine, Open Approach (ICD-10-PCS; 2020-09-27)
PROC: 0DTP0ZZ Resection of Rectum, Open Approach (ICD-10-PCS; principal; 2020-09-27 08:30)
DX: K62.89 Other specified diseases of anus and rectum (principal); Q43.8 Other specified congenital malformations of intestine; K63.89 Other specified diseases of intestine; I10 Essential (primary) hypertension